=== PATIENT | male | born 1945 | race Caucasian/White ===

== ENCOUNTER → 2018-08-07 14:40 | Outpatient (CLI) | payer MEDICARE, OTHER, SELFPAY ==
--- NOTE | 2018-08-07 | DI.RAD.S_ITS ---
PROCEDURE: XR CALCANEOUS LT MIN 2V INDICATIONS: Plantar fascial fibromatosis TECHNIQUE: Two views of the calcaneus were acquired. COMPARISON: None. FINDINGS: Bones: No fractures or dislocations. No suspicious bony lesions. Prominent plantar calcaneal spur. Tibiotalar degenerative spurring at the posterior malleolus. Soft tissues: No suspicious calcifications. Small dystrophic calcifications projecting along the course of the Achilles tendon suggests chronic tendinopathy IMPRESSION: Prominent plantar calcaneal spur. Dictated by: Ariel Dinero M.D. on 08/07/2018 at 16:17 Approved by: Ariel Dinero M.D. on 08/07/2018 at 16:18
== END ==
PROVIDERS: Family Provider Family Medicine; PCP Family Medicine; Visit Provider Podiatrist
DX: M72.2 Plantar fascial fibromatosis (principal); M77.32 Calcaneal spur, left foot
CPT/HCPCS: 73650

== ENCOUNTER → 2019-04-06 10:23 | Outpatient (CLI) | payer MEDICARE, OTHER, SELFPAY ==
--- NOTE | 2019-04-06 | DI.US.S_ITS ---
PROCEDURE: US ABDOMEN COMPLETE INDICATIONS: DISORDER OF BILIRUBEN METABOLISM, UNSPECIFIED TECHNIQUE: Real-time scanning was performed of the abdominal and retroperitoneal organs, with image documentation. COMPARISON: [facility], CT, THORAX WITH CONTRAST, 06/23/2014, 9:01. [facility], US, ABDOMEN COMPLETE, 07/10/2009, 3:00. [facility], US, ABDOMEN COMPLETE, 05/08/2009, 8:32. FINDINGS: Liver: Liver is normal in size and homogeneous in echotexture, increased in echogenicity to a mild degree is consistent with fatty infiltration. Gallbladder: Surgically absent Biliary ducts: Poorly seen due to bowel gas. Pancreas: Visualized portions of the pancreas are sonographically normal. Spleen: Spleen is normal in size and homogeneous in echotexture. Kidneys: Kidneys are normal in size and echotexture. Right kidney measures 11.1 cm long; left kidney measures 11.2 cm long. No hydronephrosis or nephrolithiasis. No solid masses, but there is mild lobulation of the renal cortical borders consistent with that seen also on prior CT scanning compare 2014. Aorta: Visualized aorta is normal in caliber at less than 3 cm. Iliacs: Proximal common iliac arteries are normal in caliber at less than 2.5 cm. IVC: Intrahepatic inferior vena cava is patent. Miscellaneous: No free abdominal fluid. IMPRESSION: Mild lobulation of the renal cortical contours on the left, also seen on prior CT scanning from June 2014. No hydronephrosis or nephrolithiasis found Mild hepatic steatosis.. No liver mass or biliary distention is seen. Dictated by: Barron Bear M.D. on 04/06/2019 at 13:00 Approved by: Barron Bear M.D. on 04/06/2019 at 13:06
== END ==
PROVIDERS: PCP Family Medicine; Visit Provider Family Medicine
DX: E80.7 Disorder of bilirubin metabolism, unspecified (principal); Z90.49 Acquired absence of other specified parts of digestive tract; K76.0 Fatty (change of) liver, not elsewhere classified
CPT/HCPCS: 76700

== ENCOUNTER 2021-04-09 12:38 | Emergency (ER) | payer MEDICARE, OTHER, SELFPAY ==
[2021-04-09 12:40] VITALS: BP 169/90; PULSE 69; RESP 14; TEMP 36.2; O2SAT 99
--- NOTE | 2021-04-09 12:53 | ED.SKABFB ---
HPI - Skin/Abscess/Foreign Bdy General Chief complaint: Skin/Abscess/Foreign Body Stated complaint: gash on leg rt Time Seen by Provider: 04/09/21 12:48 Source: patient Mode of arrival: Ambulatory Limitations: no limitations History of Present Illness HPI narrative: 75-year-old male here for evaluation of a skin abrasion to his right cárdenas. Approximately 1 week ago he was wearing pants. He tripped while walking his dog and landed on a stump. Sustain an abrasion to his right cárdenas. Has been ambulatory since then. No fevers. Overall feels well appear started to get some redness around the area. His thought that he potentially had infection so he came to the emergency department for evaluation. Related Data Home Medications Medication Instructions Recorded Confirmed rosuvastatin 10 mg tablet (Crestor) 10 mg PO QPM #0 01/03/17 Previous Rx's Medication Instructions Recorded cephalexin 500 mg capsule 500 mg PO QID 7 Days #28 cap 04/09/21 Allergies Allergy/AdvReac Type Severity Reaction Status Date / Time No Known Drug Allergies Allergy Verified 04/09/21 12:49 Review of Systems Constitutional Constitutional: Denies fever(s) Musculoskeletal Musculoskeletal: Reports system reviewed and no additional complaints, except as documented and Reports as per HPI Integumentary/Breasts Skin/Breast: Reports system reviewed and no additional complaints, except as documented and Reports as per HPI Neurologic Neurologic: Reports system reviewed and no additional complaints, except as documented Hematologic/Lymphatic On Anticoagulants: No Patient History Social History Smoking Status: Never smoker Smoking Status: Never smoker alcohol intake frequency: 0-2 drinks per day Substance Use Type: does not use Exam Initial Vital Signs Initial Vital Signs: Vital Signs Temperature 97.1 F L 04/09/21 12:40 Pulse Rate 69 04/09/21 12:40 Respiratory Rate 14 04/09/21 12:40 Blood Pressure 169/90 H 04/09/21 12:40 Pulse Oximetry 99 04/09/21 12:40 HENMT Head: normal to inspection and normocephalic Skin Other: Patient has approximately 8 cm abrasion on his right anterior cárdenas. There is some scab formation. Very small amount of bleeding. There is some surrounding redness and warmth. No induration. Neuro Sensory Exam: no sensory deficits noted Extrem Other: Patient can flex and extend his ankle with only minimal discomfort on his anterior cárdenas Course Orders Ordered: Discontinued Medications Diphtheria/Tetanus/Acell Pertussis (Tet,Diph,Pertuss(Acell),Vac/Pf 0.5 Ml Syringe) 0.5 ml IM .ONCE ONE Stop: 04/09/21 12:51 Vital Signs Vital signs: Vital Signs - 8 hr 04/09/21 12:40 Temperature 97.1 F L Pulse Rate 69 Respiratory Rate 14 Blood Pressure 169/90 H Pulse Oximetry 99 MDM - Skin/Abscess/Foreign Bdy MDM Narrative Medical decision making narrative: I have low suspicion for fracture. We can hold on any radiologic studies. His injuries approximately 1 week ago. No indication for sutures here in the ER. There is some redness around the abrasion. He is squarely in a maria area where there potentially could be an infection that is causing the redness or this could very well just be a inflammation because of the injury and also healing of the area. His tetanus was updated. I will send home with a prescription for antibiotics although he is going to hold on this for the next 1-2 days. If his symptoms worsen he will start taking it as directed. If his symptoms start to improve he will discard the prescription. There is no indication for IV antibiotics. He expressed understanding and agreement this plan. Discharge Plan Departure Patient Disposition: Home Clinical Impression: Abrasion of skin Activity Restrictions/Additional Instructions: Your tetanus was updated today. The appearance of your wound today does have some findings that would be concerning for infection however this could also be inflammation related to the injury and also healing of the area. Like we discussed the plan will be is to send you home with a prescription for antibiotics. I recommend that you hold on filling this for the next 1-2 days. If your symptoms start to worsen. If becomes more painful. The redness starts to worsen in start taking the antibiotics as directed. If your symptoms continue to improve her do not worsen then just discard this antibiotic. Return to the emergency department for any new or worsening symptoms Prescriptions: New cephalexin 500 mg capsule 500 mg PO QID 7 Days Qty: 28 0RF No Action rosuvastatin [Crestor] 10 MG tablet 10 mg PO QPM Qty: 0 0RF Referrals: Elio Bran MD [Primary Care Provider] -
[2021-04-09] MEDS: TET,DIPH,PERTUSS(ACELL),VAC/PF 0.5 ML SYRINGE IM (13:10)
[2021-04-09 13:56] LABS: COVID19 -Nasal RAPID Negative (Negative)
== END 2021-04-09 14:14 | disposition home or self-care (01) ==
PROVIDERS: Emergency Provider Emergency Medicine; PCP Family Medicine
DX: S80.811A Abrasion, right lower leg, initial encounter (principal); W01.198A Fall on same level from slipping, tripping and stumbling with subsequent striking against other object, initial encounter; Y93.K1 Activity, walking an animal; Z20.822 Contact with and (suspected) exposure to COVID-19; Z23 Encounter for immunization
CPT/HCPCS: 87635; 90471; 99283; C9803; 90715

== ENCOUNTER → 2021-09-22 13:45 | Outpatient (CLI) | payer MEDICARE, OTHER, SELFPAY ==
--- NOTE | 2021-09-22 13:48 | DI.RAD.S_ITS ---
PROCEDURE: XR KNEE RT 3V INDICATIONS: fall, medial R knee pain TECHNIQUE: 3 views of the knee were acquired. COMPARISON: None. FINDINGS: Bones: Subtle lucency under the tibial eminence is most likely caused by nutrient vessel. No suspicious bony lesions. Mild degenerative joint disease. Soft tissues: Trace joint effusion. No suspicious soft tissue calcifications. IMPRESSION: Subtle lucency in the proximal tibia and the tibial eminence is most likely caused by a a nutrient vessel. If there is high clinical suspicion for fracture, CT would be helpful. Dictated by: Thelma Alberto M.D. on 09/22/2021 at 13:06 Approved by: Thelma Alberto M.D. on 09/22/2021 at 13:11
== END ==
PROVIDERS: PCP Family Medicine; Referring Provider Physician Assistant; Visit Provider Physician Assistant
DX: S89.91XA Unspecified injury of right lower leg, initial encounter (principal); X58.XXXA Exposure to other specified factors, initial encounter
CPT/HCPCS: 73562

== ENCOUNTER → 2021-10-22 17:06 | Outpatient (CLI) | payer MEDICARE, OTHER, SELFPAY ==
--- NOTE | 2021-10-22 | DI.MRI.S_ITS ---
PROCEDURE: MR KNEE RT WO CON INDICATIONS: SPRAIN OF MEDIAL COLLATERAL LIGMENT OF RIGHT TECHNIQUE: Noncontrast sagittal PD fast spin echo and T2 fast spin echo with fat saturation, sagittal 3-D FLASH with fat saturation; coronal T1 spin echo and PD fast spin echo with fat saturation, and axial PD fast spin echo with fat saturation through the knee. COMPARISON: None. FINDINGS: Image quality: Excellent. Menisci: Linear oblique high signal intensity traverses the middle 3rd of the posterior horn medial meniscus, demonstrating superior and inferior articular surface extension, indicating oblique tearing. Lateral meniscus is intact. Cruciate ligaments: The anterior and posterior cruciate ligaments appear intact. Medial structures: The medial collateral ligament appears intact, but demonstrates mild surrounding T2 signal elevation. Visualized portions of the pes anserinus tendons appear normal. No abnormal bursal fluid. Lateral structures: The lateral collateral ligament demonstrates mild T2 signal elevation at the femoral origin. The long and short heads of the biceps femoris tendon appear intact. The popliteus tendon appears normal. Iliotibial band appears normal. Anterior structures: The quadriceps and patellar tendons appear intact. Patellar alignment is normal. No femoral trochlear dysplasia or ventral trochlear prominence. No edema in the infrapatellar fat pad. Bones and cartilage: No displaced fracture. Mild ill-defined T2 signal elevation within the posterior weight-bearing aspect of the lateral tibial plateau, suggestive of contusion. Mild degenerative appearing ill-defined T2 signal elevation within the mid/anterior weight-bearing aspects of the medial femoral condyle and medial tibial plateau. Mild degenerative appearing signal within patellar apex and lateral patellar facet. Mild tricompartmental periarticular osteophyte formation. Severe articular cartilage loss diffusely overlies the weight-bearing aspects of the medial femoral condyle and medial tibial plateau. Mild articular cartilage loss diffusely overlies the weight-bearing aspects of the lateral femoral condyle and lateral tibial plateau. Moderate articular cartilage loss overlies the lateral patellar facet with superimposed high-grade articular cartilage loss overlying the central aspect of the lateral patellar facet. Joint space: There is physiologic knee joint fluid. No Astudillo's cyst. Normal appearing synovial plicae are incidentally noted. IMPRESSION: 1. Medial meniscal tear. 2. Contusion within the lateral tibial plateau. 3. Tricompartmental osteoarthritis with associated articular cartilage loss. 4. MCL strain. 5. Low-grade partial thickness lateral collateral ligament tear. Dictated by: Flora Wilhelm M.D. on 10/23/2021 at 9:13 Approved by: Flora Wilhelm M.D. on 10/23/2021 at 9:18
== END ==
PROVIDERS: PCP Family Medicine; Referring Provider Orthopaedic Surgery Foot and Ankle Surgery; Visit Provider Orthopaedic Surgery Foot and Ankle Surgery
DX: S83.411A Sprain of medial collateral ligament of right knee, initial encounter (principal); S83.241A Other tear of medial meniscus, current injury, right knee, initial encounter; S83.422A Sprain of lateral collateral ligament of left knee, initial encounter; S80.01XA Contusion of right knee, initial encounter; M17.11 Unilateral primary osteoarthritis, right knee
CPT/HCPCS: 73721

== ENCOUNTER 2022-01-03 23:07 | Emergency (ER) | payer MEDICARE, OTHER, SELFPAY ==
[2022-01-03 23:15] VITALS: BP 186/96; PULSE 68; RESP 18; TEMP 36.7; O2SAT 97
[2022-01-03] MEDS: TRANEXAMIC ACID 1,000 MG VIAL 500 MG TOP (23:22)
--- NOTE | 2022-01-03 23:45 | ED.EPISTAXIS ---
HPI - Epistaxis General Chief complaint: Nasal Problem Stated complaint: nose is bleeding thru packing post surgery Time Seen by Provider: 01/03/22 23:18 Source: patient Mode of arrival: Ambulatory Limitations: no limitations History of Present Illness HPI Narrative: This is a 76-year-old male who presents after having a melanoma excised on the left lateral nose and cheek earlier today. Patient states was not technically a Mohs surgery but dependent on margins he may have to return on Friday for additional surgery. This was done at [facility] with Dr. Tan. Patient states that they did cauterize an area and then put dressing in place. He states he was sitting at home at his desk when he started having bleeding spontaneously he was leaning slightly forward. Patient applied pressure but states it bled for about an hour until he arrived. He denies any other symptoms. States no blood thinners no aspirin, Plavix or other anticoagulants. He denies any other daily medications. Patient states that he is very minimal pain at this time. He states they did use lidocaine locally for surgery. Review of Systems Review of Systems ROS Unobtainable: All systems reviewed & are unremarkable except as noted in HPI and below Patient History Social History Smoking Status: Never smoker Smoking Status: Never smoker Substance Use Type: does not use Exam Narrative Exam Narrative: GEN: well nourished, well appearing male, alert and oriented x 3, patient appears to be in mild distress. HEENT: Atraumatic, pupils are equal round reactive to light, extraocular movements are intact, nares are clear, TMs are clear with no fluid, there is no conjunctival pallor. Throat is clear without any exudates, erythema, tonsillar enlargement or uvular deviation, patient has large tissue missing on the left lateral and cheek below the eye at the infraorbital margin. Area is L shaped and 1.75cm in width and 4.5cm in length and into the subcutaneous tissue. No active bleed on exam. There is a small amount of packing in place which was not disturbed. HEART: Regular rate and rhythm without murmur, clicks, rubs. LUNGS:Lungs clear to auscultation, no wheezes, rales, crackles, chest moves symmetrically ABD:bowel sounds normal, soft, non-tender, no guarding, rebound, rigidity, no masses noted, no hepatosplenomegaly MSCL: Non-tender, no muscle atrophy, muscles strength 5/5 upper and lower extremities, full range of motion, normal gait NEURO:CN 2-12 intact, sensation normal SKIN: No erythema or other skin changes noted. Initial Vital Signs Initial Vital Signs: Vital Signs Temperature 98.1 F 01/03/22 23:15 Pulse Rate 68 01/03/22 23:15 Respiratory Rate 18 01/03/22 23:15 Blood Pressure 186/96 H 01/03/22 23:15 Pulse Oximetry 97 01/03/22 23:15 Oxygen Delivery Method 01/03/22 23:15 Course Orders Ordered: Discontinued Medications Tranexamic Acid (Tranexamic Acid 1,000 Mg Vial) 500 mg TOP NOW ONE Stop: 01/03/22 23:19 Last Admin: 01/03/22 23:22 Dose: 500 mg Documented By: BERNADINE Vital Signs Vital signs: Vital Signs - 8 hr 01/03/22 23:15 01/04/22 00:31 Temperature 98.1 F Pulse Rate 68 59 L Respiratory Rate 18 18 Blood Pressure 186/96 H 158/86 H Pulse Oximetry 97 97 Oxygen Delivery Method Room Air Room Air MDM - Epistaxis MDM Narrative Medical decision making narrative: This is a 76-year-old male who comes to the emergency department with complaint of bleeding from his surgical excision melanoma. Patient's bleeding has actually stopped with him applying direct pressure for the past hour. Wound was evaluated, patient had a amount of ooze and a portion of Gelfoam was placed over the top of a small amount of packing and not directly onto the tissue. A small amount of TXA or tranexamic acid was applied to this area as well with good effect. Patient was observed for approximately 45 minutes with no additional bleeding, bandage was placed and patient was discharged home with return precautions. He is going to reach out to his dermatology office during daytime hours today/Friday. Discharge Plan Departure Patient Disposition: Home Clinical Impression: Post-op bleeding Activity Restrictions/Additional Instructions: Please follow-up with your electric blanket wirer tomorrow either by phone or in person. Let them know that you had some bleeding today. We did put a small amount of Gelfoam over the patches at your site but not directly on the tissue along with a small amount of TXA or tranexamic acid. Leave dressing in place. If you have recurrent bleeding please apply direct pressure. Please return if you have recurrent issues, bleeding that you are unable to stop with direct pressure after 10 minutes, any signs of infection, lightheadedness or passing out or any other new or concerning symptoms. Referrals: Elio Bran MD [Primary Care Provider] - Visit Report Forms: Patient Portal/API
[2022-01-04 00:31] VITALS: BP 158/86; PULSE 59; RESP 18; O2SAT 97
== END 2022-01-04 00:35 | disposition home or self-care (01) ==
PROVIDERS: Emergency Provider Emergency Medicine; PCP Family Medicine
DX: L76.21 Postprocedural hemorrhage of skin and subcutaneous tissue following a dermatologic procedure (principal)
CPT/HCPCS: 99282

== ENCOUNTER → 2023-04-16 15:05 | Outpatient (CLI) | payer MEDICARE, OTHER, SELFPAY ==
--- NOTE | 2023-04-16 | DI.RAD.S_ITS ---
PROCEDURE: XR SHOULDER RT MIN 2V INDICATIONS: RIGHT SHOULDER PAIN TECHNIQUE: 3 views of the shoulder were acquired. COMPARISON: None. FINDINGS: Bones: No fractures or dislocations. Moderate acromioclavicular joint and glenohumeral joint osteoarthritic changes are seen. No suspicious bony lesions. Visualized ribs appear intact. Soft tissues: No suspicious soft tissue calcifications. IMPRESSION: Moderate right shoulder joint osteoarthritis. No shoulder fracture or dislocation. No gross soft tissue abnormalities. Dictated by: Jeremie Sheridan M.D. on 04/16/2023 at 17:01 Approved by: Jeremie Sheridan M.D. on 04/16/2023 at 17:01
== END ==
PROVIDERS: PCP Family Medicine; Referring Provider Family Medicine; Visit Provider Family Medicine
DX: M25.511 Pain in right shoulder (principal); M19.011 Primary osteoarthritis, right shoulder
CPT/HCPCS: 73030

== ENCOUNTER → 2023-09-23 13:10 | Outpatient (CLI) | payer MEDICARE, OTHER, SELFPAY ==
--- NOTE | 2023-09-23 13:12 | DI.MRI.S_ITS ---
PROCEDURE: MR SHOULDER RT WO CON INDICATIONS: RIGHT SHOULDER PAIN TECHNIQUE: Noncontrast oblique coronal T2 fast spin echo with fat saturation, oblique sagittal T1 spin echo and T2 fast spin echo with fat saturation, axial T1 spin echo and T2 fast spin echo with fat saturation through the shoulder. COMPARISON: None. FINDINGS: Image quality: Excellent Rotator cuff: In the supraspinatus, there is focal, full-thickness tear at the critical zone, superimposed low grade articular sided tear (series 8, image 9). The infraspinatus is unremarkable. The teres minor is unremarkable. Mild tendinosis of the subscapularis, without tear. No muscle edema or fatty atrophy. Bones and bursae: Severe degenerative change of the acromioclavicular joint with inferior projecting osteophytes. Type 2 acromion. No os acromiale. No significant subacromial/subdeltoid bursitis. Mild subchondral cystic changes at the posterior aspect of the greater tuberosity, reactive. No focal chondral defects of the glenohumeral articulation. Capsule and soft tissues: Tear of the superior labrum, extending into the anterosuperior labrum. Tear of the posterior labrum as well. Diffuse labral degeneration. Mild tenosynovitis of the extra-articular biceps tendon. Severe tendinosis of the intra-articular biceps tendon. Small glenohumeral effusion. Mild subcoracoid bursitis. IMPRESSION: 1. Focal full-thickness tear of the supraspinatus, superimposed on low-grade articular sided tear. 2. Severe degenerative changes acromioclavicular joint. 3. Labral tear. 4. Mild tenosynovitis of the extra-articular biceps tendon. Severe tendinosis of the intra-articular biceps tendon. Dictated by: Carlyn Waterman M.D. on 09/23/2023 at 16:15 Approved by: Carlyn Waterman M.D. on 09/23/2023 at 16:26
== END ==
PROVIDERS: PCP Family Medicine; Referring Provider Orthopaedic Surgery; Visit Provider Orthopaedic Surgery
DX: M75.121 Complete rotator cuff tear or rupture of right shoulder, not specified as traumatic (principal); S43.401A Unspecified sprain of right shoulder joint, initial encounter; M65.9 Synovitis and tenosynovitis, unspecified
CPT/HCPCS: 73221

== ENCOUNTER 2024-02-09 10:53 | Emergency (ER) | payer MEDICARE, OTHER, SELFPAY ==
[2024-02-09] VITALS (8 sets, daily range): BP systolic 147–165; BP diastolic 68–94; PULSE 47–77; RESP 10–18; TEMP 36.2; O2SAT 95–98; BMI 29.5
--- NOTE | 2024-02-09 11:14 | EKG_ITS ---
[facility] [address] [place] [address] Test Date: 2024-02-09 Pat Name: Sae German Department: [facility] Room: Gender: Male [employer]: KEV : 1945 Requested By: Order Number: [id number] Reading MD: Angel Rogel MD Measurements Intervals [place] Rate: 59 P: 63 FL: 160 QRS: -3 QRSD: 82 T: -6 QT: 430 QTc: 425 Interpretive Statements Sinus bradycardia with premature atrial complexes Minimal voltage criteria for LVH, may be normal variant ( R in aVL ) Electronically Signed On 02-09-2024 13:49:45 PDT by Angel Rogel MD
--- NOTE | 2024-02-09 11:16 | ED_ITS ---
HPI - Syncope General Chief Complaint: Syncope Stated Complaint: syncope 02/06 Time Seen by Provider: 02/09/24 11:16 Source: patient Mode of arrival: Ambulatory Limitations: no limitations History of Present Illness HPI narrative: Patient is a 78-year-old male history of hyperlipidemia comes into the ED from home for evaluation of syncopal event, states that this happened on 02/07/2024 when he was attempting to fix a vanity Annam[place]. States that he does remember falling onto the floor, did not have any presyncopal or symptoms before or after. Denies any lightheaded dizziness. States he was able to stand bear weight ambulate immediately after. States that he was told by his to get ?checked out. Currently not complaining of any symptoms at this time. Related Data Home Medications Medication Instructions Recorded Confirmed rosuvastatin 10 mg tablet (Crestor) 10 mg PO QPM ##0 01/03/17 09/22/21 Allergies Allergy/AdvReac Type Severity Reaction Status Date / Time No Known Drug Allergies Allergy Verified 02/09/24 11:02 Review of Systems Review of Systems Narrative: HEENT: Denies headache, eye drainage, eye irritation, head trauma, sore throat, voice change Cardiovascular: Denies any chest pain, palpitations, shortness of breath, tachycardia Respiratory: Denies any shortness of breath, cough, wheeze, stridor GI/: Denies any abdominal pain, nausea, vomiting, diarrhea, bright red blood per rectum, melanotic stools, urinary frequency, urinary retention, dysuria, hematuria MSK: Denies any joint pain, muscle pains, swelling Skin: Denies any rashes, lesions, discoloration Neuro: Denies any headache, lightheadedness, dizziness, fainting, weakness. Positive syncope Psych: Denies SI/HI Patient History Social History (System 01/04/22 @ 06:58 by Lady Nori Lord) Smoking Status: Never smoker Smoking Status: Never smoker alcohol intake frequency: 0-2 drinks per day Substance Use Type: does not use Exam Narrative Exam Narrative: General: Cooperative, comfortable, well-developed, not in acute distress HEENT: Normocephalic, atraumatic, PERRLA, normal sclera, eyelids normal, Neck: Active full range of motion, atraumatic Chest: Normal to inspection, negative crepitus, no overlying erythema ecchymosis Respiratory: Normal respiratory effort, not in acute respiratory distress, clear to auscultation bilaterally negative cough, wheeze, tachypnea, rhonchi, rales Cardiology: Regular rate rhythm negative gallop, murmur, rubs GI/: Normal to inspection, soft, nonrigid, no tenderness to palpation, exam deferred MSK: Full range of active range of motion of all 4 extremities, atraumatic Skin: No rashes lesions noted Neuro: Alert awake oriented x3, moves all 4 extremities spontaneously, cranial nerves intact, able to answer all questions appropriately follows commands appropriately, NIH of 0 no focal deficits Psych: Cooperative, negative suicidal or homicidal ideations Initial Vital Signs Initial Vital Signs: Vital Signs Temperature 97.1 F L 02/09/24 10:55 Pulse Rate 77 02/09/24 10:55 Respiratory Rate 18 02/09/24 10:55 Blood Pressure 154/68 H 02/09/24 10:55 Pulse Oximetry 97 02/09/24 10:55 Oxygen Delivery Method Room Air 02/09/24 10:55 Course Orders Ordered: ED Orders 02/09/24 11:11 EKG-12 Lead Stat 02/09/24 11:24 CT angio head and neck Stat CT head/brain wo con Stat XR chest 1V Stat 02/09/24 11:34 Complete Blood Count AUTO DIFF Stat Comprehensive Metabolic Panel Stat Magnesium Stat Troponin I Stat 02/09/24 12:47 EKG-12 Lead Stat Sodium Chloride (Normal Saline 0.9%) 1,000 mls @ 150 mls/hr IV CONT MARCELINA Last Admin: 02/09/24 12:33 Dose: 150 mls/hr Documented By: VERONIQUE Vital Signs Vital signs: Vital Signs - 8 hr 02/09/24 10:55 Temperature 97.1 F L Pulse Rate 77 Respiratory Rate 18 Blood Pressure 154/68 H Pulse Oximetry 97 Oxygen Delivery Method Room Air MDM - Syncope Differential Diagnosis Differential diagnosis: Likely syncope due to orthostatic hypotension and other (ACS, pneumonia, electrolyte abnormality, subdural) Medical Records Attestation: I reviewed the patient's medical records. Lab Data Attestation: I reviewed the patient's lab results. 02/09/24 11:34 02/09/24 11:34 Labs: Lab Results 02/09/24 Range/Units 11:34 WBC 4.4 L (4.5-11.0) X10^3/uL RBC 4.47 L (4.5-5.9) X10^6/uL Hgb 13.8 (13.5-17.5) g/dL Hct 39.3 L (41-53) % MCV 88.0 (80-100) fL MCH 30.8 (26-34) PG MCHC 35.1 (30-36) % RDW 14.2 (11.6-14.8) % Plt Count 161 (150-400) X10^3/uL Neut % (Auto) 48.1 L (50-75) % Lymph % (Auto) 35.9 (25-40) % Hawkins % (Auto) 11.3 (3-14) % Eos % (Auto) 3.9 (2-4) % Baso % (Auto) 0.8 (0-2) % Neut # (Auto) 2100 (0227-7468) /uL Lymph # (Auto) 1600 (0554-2229) /uL Hawkins # (Auto) 500 (0-900) /uL Eos # (Auto) 200 (0-450) /uL Baso # (Auto) 0 (0-100) /uL Sodium 138 (137-145) mmol/L Potassium 4.3 (3.4-5.1) mmol/L Chloride 106 (98-107) mmol/L Carbon Dioxide 26 (22-32) mmol/L BUN 23 H (9-20) mg/dL Creatinine 1.53 H (0.66-1.25) mg/dL Estimated GFR 47 L (>60) mL/min BUN/Creatinine Ratio 15.0 (6-22) Glucose 106 (80-110) mg/dL Calcium 9.2 (8.4-10.2) mg/dL Magnesium 1.9 (1.6-2.3) mg/dL Total Bilirubin 2.1 H (0.2-1.3) mg/dL AST 29 (17-59) IU/L ALT 21 (<50) IU/L Alkaline Phosphatase 64 (38-126) U/L Troponin I < 0.012 (0.01-0.034) ng/mL Total Protein 6.7 (6.3-8.2) g/dL Albumin 4.0 (3.5-5.0) g/dL Globulin 2.7 (1.7-4.1) g/dL Albumin/Globulin Ratio 1.5 (1.0-2.8) Imaging Data CT scan - head: Radiologist's Impression: PROCEDURE: CT HEAD/BRAIN WO CON INDICATIONS: syncope, fall TECHNIQUE: Noncontrast 4.5 mm thick angled axial sections acquired from the foramen magnum to the vertex, with coronal and sagittal reformats. For radiation dose reduction, the following was used: automated exposure control, adjustment of mA and/or kV according to patient size. COMPARISON: None. FINDINGS: Image quality: Diagnostic. CSF spaces: Basal cisterns are patent. No extra-axial fluid collections. The ventricles are symmetric in size and shape. Brain: No intracranial bleeds or masses. There is cerebral volume loss for age, with resultant ventricular and sulcal prominence. There are periventricular and deep white matter chronic small vessel ischemic changes. There is intracranial internal carotid artery atherosclerosis. Skull and face: Left frontal scalp contusion/hematoma. Calvarium and visualized facial bones appear intact, without suspicious lesions. Sinuses: Visualized sinuses and mastoids are clear. IMPRESSION: 1. CT head without acute intracranial abnormalities or acute calvarial fractures. Left frontal scalp contusion/hematoma. 2. Age-related senescent changes and sequela of chronic small vessel ischemic disease. Chest x-ray: Radiologist's Impression: PROCEDURE: XR CHEST 1V INDICATIONS: syncope TECHNIQUE: One view of the chest was acquired. COMPARISON: [facility], CHEST 2 VIEW, 05/31/2014, 16:02. FINDINGS: Surgical changes and devices: None. Lungs and pleura: Lungs are clear. No pleural effusions or pneumothorax. Mediastinum: Mediastinal contours appear normal. Heart size is normal. Bones and chest wall: No suspicious bony lesions. Overlying soft tissues appear unremarkable. IMPRESSION: No acute cardiopulmonary abnormality is seen. CTA - brain/neck: Radiologist's Impression: PROCEDURE: CT ANGIO HEAD AND NECK INDICATIONS: syncope / fall TECHNIQUE: After the administration of intravenous contrast, 1 mm thick sections acquired from the aortic arch through the [place] of [place]. 3-dimensional kusgdsv-vvayvwrso-xahnnbdxjq (MIP) and/or volume rendering reformats were acquired of the central intracranial vasculature and neck separately. For radiation dose reduction, the following was used: automated exposure control, adjustment of mA and/or kV according to patient size. COMPARISON: [facility], CT, CT HEAD/BRAIN WO CON, 02/09/2024, 12:08. FINDINGS: Image quality: Diagnostic. BRAIN: CSF spaces: Ventricles are normal in size and shape. Basal cisterns are patent. No extra-axial fluid collections. Brain: No midline shift. No intracranial masses. No suspicious enhancement. Butt-white matter interface appears intact. Skull and face: Calvarium and facial bones appear intact, without suspicious lesions. Orbits appear normal. Sinuses: Mild bilateral maxillary sinus and right sphenoid sinus mucosal thickening. Remainder of the paranasal sinuses appear clear. Mastoid air cells are well- aerated. HEAD CT ANGIOGRAPHY: Anterior circulation: There are atherosclerotic calcifications of the intracranial segments of the internal carotid arteries. Intracranial internal carotid arteries appear patent without high-grade stenosis. There is flow/opacification within the paired anterior cerebral arteries. There is opacification within the middle cerebral arteries. The anterior communicating artery is seen. No aneurysms are seen. No occlusion. Posterior circulation: Visualized portions of the vertebral arteries are patent and join to form a normal appearing basilar artery. No evidence for high-grade stenosis. No occlusions. There is opacification of the posterior cerebral arteries. No aneurysms are seen. NECK CT ANGIOGRAPHY: Carotid system: The great vessels demonstrate a conventional anatomy as they arise from the aortic arch. Atherosclerotic calcifications of the aortic arch are present. The origins of the common carotid arteries appear patent. The common carotid arteries appear patent throughout their visualized courses without high grade stenosis. Mild atherosclerotic calcifications of the carotid bulbs bilaterally. The bifurcation regions are both patent without high grade stenosis. The internal carotid arteries demonstrate normal calibers and courses. Posterior circulation: The origins of the vertebral arteries both appear patent without hemodynamically significant stenosis. The more superior extracranial portions of both vertebral arteries also demonstrate normal courses and calibers. They join to form a normal appearing basilar artery. Soft tissues: Visualized neck soft tissues demonstrate no suspicious abnormalities. Left periorbital/frontal scalp soft tissue contusion and hematoma Bones: No suspicious bony lesions. Visualized cervical spine appears normally aligned. No acute compression fractures of the vertebral bodies. Multilevel cervical spondylosis. IMPRESSION: Negative CT angiogram of the intracranial and neck arterial vasculature for high-grade stenosis, large vessel occlusion, dissection, or aneurysm. Multilevel cervical spondylosis. Bilateral maxillary sinus and right sphenoid sinus disease. Left frontal scalp/periorbital soft tissue contusion/hematoma. No underlying calvarial fracture. Any quantitative measurements of stenosis were performed using NASCET criteria. ECG Data Attestation: I personally reviewed and interpreted this ECG as follows: Interpretation: EKG interpreted by ED physician sinus bradycardia at 59 beats per minute QTC 425, normal axis nonspecific ST changes occasional PAC noted, no STEMI MDM Narrative Medical decision making narrative: Patient is 78-year-old male history of hyperlipidemia comes into the ED from home for evaluation of syncopal event on 02/07/2024. States that he was fixing a vanity when he passed out, he states that he does remember hitting his head but denies any headache visual disturbances denies any presyncopal symptoms, currently not complaining of any symptoms. Patient with low [place] syncope, - 1. Lab work unremarkable trop negative EKG nonischemic, CT head CT a head and neck without any masses bleeds or stenoses. Patient at evaluation NIH of 0 no focal deficits. Patient will be discharged home with outpatient follow up with cardiology PCP. I did offer the patient admission or transfer for possible cardiac workup, however he states that he ?feels fine and states that he would rather go home and follow-up with cardiology and PCP in outpatient setting. Discharge Plan Departure Patient Disposition: Home Clinical Impression: Syncope Activity Restrictions/Additional Instructions: Follow-up with cardiology and PCP Please read the discharge instructions sheet carefully and bring all papers to all doctor follow-up visits, as it may contain information that your doctor may want to see. Disease processes change and evolve, if your symptoms worsen or if you develop any new symptoms that are concerning to you please return for evaluation. Your evaluation today does not show any evidence of any life- threatening/serious illnesses requiring admission to the hospital or surgery. Please follow-up with your doctor for re-evaluation in approximately 1 day. Seek immediate medical attention for any worrisome symptoms. Prescriptions: No Action rosuvastatin [Crestor] 10 MG tablet 10 mg PO QPM Qty: 0 Referrals: Alex Sheridan MD [Physician] - (Syncope) Elio Bran MD [Primary Care Provider] - Stand Alone Forms: Patient Portal/API
--- NOTE | 2024-02-09 11:24 | DI.CT.S_ITS ---
PROCEDURE: CT ANGIO HEAD AND NECK INDICATIONS: syncope / fall TECHNIQUE: After the administration of intravenous contrast, 1 mm thick sections acquired from the aortic arch through the [place] of Wong. 3-dimensional ahdihil-ywbyaslfp-yzddpxywxm (MIP) and/or volume rendering reformats were acquired of the central intracranial vasculature and neck separately. For radiation dose reduction, the following was used: automated exposure control, adjustment of mA and/or kV according to patient size. COMPARISON: [facility], CT, CT HEAD/BRAIN WO CON, 02/09/2024, 12:08. FINDINGS: Image quality: Diagnostic. BRAIN: CSF spaces: Ventricles are normal in size and shape. Basal cisterns are patent. No extra-axial fluid collections. Brain: No midline shift. No intracranial masses. No suspicious enhancement. Butt-white matter interface appears intact. Skull and face: Calvarium and facial bones appear intact, without suspicious lesions. Orbits appear normal. Sinuses: Mild bilateral maxillary sinus and right sphenoid sinus mucosal thickening. Remainder of the paranasal sinuses appear clear. Mastoid air cells are well-aerated. HEAD CT ANGIOGRAPHY: Anterior circulation: There are atherosclerotic calcifications of the intracranial segments of the internal carotid arteries. Intracranial internal carotid arteries appear patent without high-grade stenosis. There is flow/opacification within the paired anterior cerebral arteries. There is opacification within the middle cerebral arteries. The anterior communicating artery is seen. No aneurysms are seen. No occlusion. Posterior circulation: Visualized portions of the vertebral arteries are patent and join to form a normal appearing basilar artery. No evidence for high-grade stenosis. No occlusions. There is opacification of the posterior cerebral arteries. No aneurysms are seen. NECK CT ANGIOGRAPHY: Carotid system: The great vessels demonstrate a conventional anatomy as they arise from the aortic arch. Atherosclerotic calcifications of the aortic arch are present. The origins of the common carotid arteries appear patent. The common carotid arteries appear patent throughout their visualized courses without high grade stenosis. Mild atherosclerotic calcifications of the carotid bulbs bilaterally. The bifurcation regions are both patent without high grade stenosis. The internal carotid arteries demonstrate normal calibers and courses. Posterior circulation: The origins of the vertebral arteries both appear patent without hemodynamically significant stenosis. The more superior extracranial portions of both vertebral arteries also demonstrate normal courses and calibers. They join to form a normal appearing basilar artery. Soft tissues: Visualized neck soft tissues demonstrate no suspicious abnormalities. Left periorbital/frontal scalp soft tissue contusion and hematoma Bones: No suspicious bony lesions. Visualized cervical spine appears normally aligned. No acute compression fractures of the vertebral bodies. Multilevel cervical spondylosis. IMPRESSION: Negative CT angiogram of the intracranial and neck arterial vasculature for high-grade stenosis, large vessel occlusion, dissection, or aneurysm. Multilevel cervical spondylosis. Bilateral maxillary sinus and right sphenoid sinus disease. Left frontal scalp/periorbital soft tissue contusion/hematoma. No underlying calvarial fracture. Any quantitative measurements of stenosis were performed using NASCET criteria. Dictated by: Michael Cunningham M.D. on 02/09/2024 at 12:28 Approved by: Michael Cunningham M.D. on 02/09/2024 at 12:36
--- NOTE | 2024-02-09 11:24 | DI.CT.S_ITS ---
PROCEDURE: CT HEAD/BRAIN WO CON INDICATIONS: syncope, fall TECHNIQUE: Noncontrast 4.5 mm thick angled axial sections acquired from the foramen magnum to the vertex, with coronal and sagittal reformats. For radiation dose reduction, the following was used: automated exposure control, adjustment of mA and/or kV according to patient size. COMPARISON: None. FINDINGS: Image quality: Diagnostic. CSF spaces: Basal cisterns are patent. No extra-axial fluid collections. The ventricles are symmetric in size and shape. Brain: No intracranial bleeds or masses. There is cerebral volume loss for age, with resultant ventricular and sulcal prominence. There are periventricular and deep white matter chronic small vessel ischemic changes. There is intracranial internal carotid artery atherosclerosis. Skull and face: Left frontal scalp contusion/hematoma. Calvarium and visualized facial bones appear intact, without suspicious lesions. Sinuses: Visualized sinuses and mastoids are clear. IMPRESSION: 1. CT head without acute intracranial abnormalities or acute calvarial fractures. Left frontal scalp contusion/hematoma. 2. Age-related senescent changes and sequela of chronic small vessel ischemic disease. Dictated by: Michael Cunningham M.D. on 02/09/2024 at 12:27 Approved by: Michael Cunningham M.D. on 02/09/2024 at 12:28
--- NOTE | 2024-02-09 11:24 | DI.RAD.S_ITS ---
PROCEDURE: XR CHEST 1V INDICATIONS: syncope TECHNIQUE: One view of the chest was acquired. COMPARISON: [facility], , CHEST 2 VIEW, 05/31/2014, 16:02. FINDINGS: Surgical changes and devices: None. Lungs and pleura: Lungs are clear. No pleural effusions or pneumothorax. Mediastinum: Mediastinal contours appear normal. Heart size is normal. Bones and chest wall: No suspicious bony lesions. Overlying soft tissues appear unremarkable. IMPRESSION: No acute cardiopulmonary abnormality is seen. Dictated by: Len Anthony M.D. on 02/09/2024 at 12:18 Approved by: Len Anthony M.D. on 02/09/2024 at 12:18
[2024-02-09 11:41] LABS: Add Manual Diff / Slide Review NO; Basophils Absolute Auto 0 /uL (0-100); Basophils Percent Auto 0.8 % (0-2); Eosinophils Absolute Auto 200 /uL (0-450); Eosinophils Percent Auto 3.9 % (2-4); Hematocrit 39.3 % (41-53); Hemoglobin 13.8 g/dL (13.5-17.5); Lymphocytes Absolute Auto 1600 /uL (1100-4500); Lymphocytes Percent Auto 35.9 % (25-40); Mean Corpuscular HGB Conc 35.1 % (30-36); Mean Corpuscular Hemoglobin 30.8 PG (26-34); Monocytes Absolute Auto 500 /uL (0-900); Monocytes Percent Auto 11.3 % (3-14); Neutrophils Absolute Auto 2100 /uL (1500-7000); Neutrophils Percent Auto 48.1 % (50-75); Platelet Count 161 X10^3/uL (150-400); Red Blood Cell Count 4.47 X10^6/uL (4.5-5.9); Red Cell Distribution Width 14.2 % (11.6-14.8); White Blood Cell Count 4.4 X10^3/uL (4.5-11.0)
[2024-02-09 11:52] LABS: Alanine Aminotransferase 21 IU/L (<50); Albumin Globulin Ratio 1.5 (1.0-2.8); Alkaline Phosphatase 64 U/L (38-126); Aspartate Aminotransferase 29 IU/L (17-59); Bilirubin Total 2.1 mg/dL (0.2-1.3); Blood Urea Nitrogen 23 mg/dL (9-20); Calcium 9.2 mg/dL (8.4-10.2); Carbon Dioxide 26 mmol/L (22-32); Chloride 106 mmol/L (98-107); Estimated Glomerular Filt Rate 47 mL/min (>60); Globulin 2.7 g/dL (1.7-4.1); Glucose 106 mg/dL (80-110); HEMOLYSIS < 15 (0-50); Magnesium 1.9 mg/dL (1.6-2.3); Potassium 4.3 mmol/L (3.4-5.1); Sodium 138 mmol/L (137-145); Total Protein 6.7 g/dL (6.3-8.2)
[2024-02-09 12:04] LABS: Troponin I < 0.012 ng/mL (0.01-0.034)
[2024-02-09] MEDS: SODIUM CHLORIDE 0.9% 1,000 ML 150 ML IV (12:33)
--- NOTE | 2024-02-09 12:52 | EKG_ITS ---
[facility] [address] [place] [address] Test Date: 2024-02-09 Pat Name: Sae German Department: [facility] Room: Gender: Male Deportation Examiner: DIANE REYNA : 1945 Requested By: Order Number: [id number] Reading MD: Angel Rogel MD Measurements Intervals Wanda Rate: 57 P: 95 NC: 184 QRS: -5 QRSD: 76 T: -8 QT: 438 QTc: 426 Interpretive Statements Sinus bradycardia with premature supraventricular complexes and with occasional premature ventricular complexes Minimal voltage criteria for LVH, may be normal variant ( R in aVL ) Electronically Signed On 02-09-2024 13:49:58 PDT by Angel Rogel MD
== END 2024-02-09 13:39 | disposition home or self-care (01) ==
PROVIDERS: Emergency Provider Student in an Organized Health Care Education/Training Program; PCP Family Medicine
DX: R55 Syncope and collapse (principal); R00.1 Bradycardia, unspecified
CPT/HCPCS: 70450; 70496; 70498; 71045; 80053; 83735; 84484; 85025; 93005; 93010; 96360; 99284; Q9967

== ENCOUNTER → 2024-02-19 19:27 | Outpatient (CLI) | payer MEDICARE, OTHER, SELFPAY ==
--- NOTE | 2024-02-19 | DI.MRI.S_ITS ---
PROCEDURE: MR SHOULDER RT WO CON INDICATIONS: rotator cuff injury rt TECHNIQUE: Noncontrast oblique coronal T2 fast spin echo with fat saturation, oblique sagittal T1 spin echo and T2 fast spin echo with fat saturation, axial T1 spin echo and T2 fast spin echo with fat saturation through the shoulder. COMPARISON: [facility], MR, MR SHOULDER RT WO CON, 09/23/2023, 13:21. FINDINGS: Compared to the prior exam there is new marked abnormal appearance of the right distal clavicle with suspected mildly displaced fracture fragment, severe diffuse bone edema in the clavicle and acromion, moderate to severe diffuse surrounding edema and new moderate acromioclavicular joint fluid. The findings are most likely posttraumatic however superimposed acromioclavicular joint septic arthritis could be considered although less likely. If indicated joint aspiration, gram stain and culture could be performed. There is evidence of a rotator cuff repair which has occurred in the interval since the prior exam however there is a new near full-thickness tear of the supraspinatus at the myotendinous junction and into the mid and distal aspect of the articular side of the supraspinatus tendon with edema and thickening at its distal attachment. No myotendinous retraction or muscular fatty atrophy. Partial tear and tendinopathy with thickening and edema in the distal subscapularis tendon is new or worsened. Infraspinatus and teres minor muscles and tendons without significant abnormality unchanged. Postoperative changes of the distal biceps tendon and biceps anchor with mild increased T2 weighted signal some of which may be related to new mild tendinopathy without tear or retraction. Previously noted large anterior paralabral cyst is markedly decreased previously up to 4 cm transverse now 1.5 cm maximally. Marked degenerative changes of the labrum with irregularity, increased signal related to remote SLAP tear, and diffuse degenerative changes of the glenohumeral joint with near [id number]-[id number] configuration, diffuse cartilaginous thinning. Image quality: Excellent. Patient motion artifacts, vascular pulsation artifacts and metallic susceptibility artifacts are noted. IMPRESSION: New marked abnormal appearance of the right distal clavicle with suspected mildly displaced fracture fragment, severe diffuse bone edema in the clavicle and acromion, moderate to severe diffuse surrounding edema and new moderate acromioclavicular joint fluid. The findings are most likely posttraumatic however superimposed acromioclavicular joint septic arthritis could be considered although less likely. If indicated joint aspiration, gram stain and culture could be performed. Follow-up is needed. Rotator cuff repair which has occurred in the interval. New near full-thickness tear of the supraspinatus as discussed above. Partial tear and tendinopathy subscapularis tendon is new or worsened. Postoperative changes of the distal biceps tendon and biceps anchor with mild tendinopathy. Previously noted paralabral cyst is markedly decreased. Marked degenerative changes of the labrum similar to the prior exam. Dictated by: Mik Ludwig M.D. on 02/20/2024 at 10:31 Approved by: Mik Ludwig M.D. on 02/20/2024 at 12:08
== END ==
PROVIDERS: PCP Family Medicine; Referring Provider Orthopaedic Surgery; Visit Provider Orthopaedic Surgery
DX: S46.011A Strain of muscle(s) and tendon(s) of the rotator cuff of right shoulder, initial encounter (principal); S43.431A Superior glenoid labrum lesion of right shoulder, initial encounter; M25.411 Effusion, right shoulder; X58.XXXA Exposure to other specified factors, initial encounter
CPT/HCPCS: 73221

== ENCOUNTER → 2024-03-19 13:46 | Outpatient (CLI) | payer MEDICARE, OTHER, SELFPAY ==
--- NOTE | 2024-03-19 13:49 | DI.CT.S_ITS ---
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 For radiation dose reduction, the following was used: automated exposure control, adjustment of mA and/or kV according to patient size. COMPARISON: [facility], CT, CT HEAD/BRAIN WO CON, 02/09/2024, 12:08. [facility], CT, CT ANGIO HEAD AND NECK, 02/09/2024, 12:08. [facility], CT, CT SOFT TISSUE NECK W CON, 03/19/2024, 14:53. [facility], CT, CT CHEST W CON, 03/19/2024, 14:53. FINDINGS: Image quality: Excellent. CSF Spaces: Basal cisterns are patent. No extra-axial fluid collections. Ventricles are normal in size and shape. Brain: No midline shift. No intracranial bleeds or masses. No abnormal intracranial enhancement. Butt-white interface appears normal. Skull and face: Postoperative changes of the left anterior scalp can be seen, with lesion removal. Overlying bandaging material is seen. No associated bony abnormality is seen.. Calvarium and visualized facial bones appear intact, without suspicious lesions. Sinuses: Visualized sinuses and mastoids are clear. IMPRESSION: Interval scalp lesion removal. No intracranial masses or mass effect can be seen. No abnormal enhancement is seen. If it would be helpful for clinical management decision making, please consider a dedicated, scheduled brain MRI (without and with contrast) for further evaluation (assuming that there is no contraindication). Dictated by: Misael Cadena M.D. on 03/19/2024 at 14:38 Approved by: Misael Cadena M.D. on 03/19/2024 at 14:40
--- NOTE | 2024-03-19 13:49 | DI.CT.S_ITS ---
PROCEDURE: CT CHEST W CON INDICATIONS: Evaluate for PLEOMORPHIC SARCOMA TECHNIQUE: After the administration of intravenous contrast, 5 mm thick sections acquired from the pulmonary apices to the posterior costophrenic angles. 1 mm axial lung, 5 mm thick coronal and sagittal reformats and 7 mm axial MIP were acquired. For radiation dose reduction, the following was used: automated exposure control, adjustment of mA and/or kV according to patient size. COMPARISON: [facility], CT, CT SOFT TISSUE NECK W CON, 03/19/2024, 14:53. [facility], CT, CT HEAD/BRAIN W CON, 03/19/2024, 14:53. FINDINGS: Image quality: Diagnostic. Lower Neck: No enlarged lymph nodes. Thyroid: No thyroid nodules which require sonographic follow up, per consensus guidelines. Axillae: No enlarged lymph nodes. Chest Wall: Unremarkable. Bones: Age-appropriate bony degenerative changes are seen. Lungs and Pleura: Within the posterior aspect of the right lower lobe, there is an apparent calcified granuloma seen, as on series 3, image 218, measuring 250 Hounsfield units. No suspicious soft tissue nodules are seen. No pneumothorax or pleural effusions are seen. Heart: Heart size is normal. No pericardial effusion. Thoracic Vessels: The aorta and pulmonary arteries demonstrate normal size. Mediastinum and Millicent: No enlarged lymph nodes. Esophagus: No wall thickening. No hiatal hernia. Upper Abdomen: Postoperative clips are seen anterior to the liver. Within the left liver, there is a water density cyst, without enhancement measuring 1.5 cm. The visualized portions of the upper abdominal structures are otherwise unremarkable for imaging technique. IMPRESSION: No suspicious pulmonary nodules are seen. No enlarged lymph nodes are seen. Additional findings: Prior granulomatous exposure. Simple liver cyst Postoperative clips anterior to the liver Dictated by: Misael Cadena M.D. on 03/19/2024 at 14:43 Approved by: Misael Cadena M.D. on 03/19/2024 at 14:46
--- NOTE | 2024-03-19 13:49 | DI.CT.S_ITS ---
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 Additional oblique axial 3.0 mm sections acquired through the pharynx. 3 mm thick coronal and sagittal reformats were generated. For radiation dose reduction, the following was used: automated exposure control. COMPARISON: [facility], CT, CT HEAD/BRAIN W CON, 03/19/2024, 14:53. [facility], CT, CT CHEST W CON, 03/19/2024, 14:53. [facility], CT, CT ANGIO HEAD AND NECK, 02/09/2024, 12:08. FINDINGS: Image quality: There is artifact associated with the metallic hardware. Artifact from the metallic hardware is reduced by metal reconstruction algorithm. Lymph nodes: No enlarged lymph nodes seen throughout the neck. Vessels: Visualized vasculature appears patent. Incidental note is made of a direct origin of the left vertebral artery from the aortic arch, which is regarded to be an incidental anatomic variant. The Neck spaces: The oropharynx, nasopharynx, and pharynx demonstrate no mucosal lesions. The vocal cords, false vocal cords, pyriform sinuses, epiglottis, vallecula, and tongue base all appear normal. Extramucosal spaces appear unremarkable. Glands: The parotid and submandibular glands appear normal. Thyroid gland demonstrates no significant abnormality. Miscellaneous: Visualized brain and orbits appear normal. Lung apices appear clear. Superficial soft tissues appear normal. Bones: No suspicious bony lesions. Visualized sinuses and mastoids appear unremarkable. Moderate cervical spine degenerative changes are seen. IMPRESSION: No enlarged cervical lymph nodes are seen. No neck masses are seen. No focal bony abnormalities are seen. Additional findings: Moderate cervical spine degenerative change Dictated by: Misael Cadena M.D. on 03/19/2024 at 14:41 Approved by: Misael Cadena M.D. on 03/19/2024 at 14:43
[2024-03-19 14:14] LABS: Estimated Glomerular Filt Rate 49 mL/min (>60)
== END ==
PROVIDERS: Radiology Diagnostic Radiology; PCP Family Medicine; Referring Provider Dermatology; Visit Provider Dermatology
DX: C44.399 Other specified malignant neoplasm of skin of other parts of face (principal)
CPT/HCPCS: 36415; 70460; 70491; 71260; 82565; Q9967

== ENCOUNTER → 2024-07-06 09:54 | Outpatient (CLI) | payer MEDICARE, OTHER, SELFPAY ==
--- NOTE | 2024-07-06 09:56 | DI.CT.S_ITS ---
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 For radiation dose reduction, the following was used: automated exposure control, adjustment of mA and/or kV according to patient size. COMPARISON: [facility], CT, CT ANGIO HEAD AND NECK, 02/09/2024, 12:08. [facility], CT, CT HEAD/BRAIN WO CON, 02/09/2024, 12:08. [facility], CT, CT SOFT TISSUE NECK W CON, 03/19/2024, 14:53. [facility], CT, CT HEAD/BRAIN W CON, 03/19/2024, 14:53. FINDINGS: Image quality: Excellent. Bones and teeth: Orbital trivedi are intact. Sinus trivedi show no fracture or deformity. Nasal bones and septum are intact. There is chronic mild leftward nasal septal deviation. Visualized portions of the mandible demonstrate no fractures or subluxation. Zygomatic arches are intact. Pterygoid plates are intact. Visualized portions of the skull base and auditory canals are intact. Sinuses: Mild mucosal thickening can be seen within the maxillary sinuses. The frontal sinuses demonstrate mild mucosal thickening inferior medially. The ostiomeatal complexes are patent, yet they are constitutionally narrowed, with bilateral Massiel cells. Soft tissues: Left forehead soft tissue irregularity is seen, with scalp thickening, as on series 3, image 78. Vascular: Visualized vascular structures appear normal in the absence of contrast. Bony vascular foramina and canals are intact. IMPRESSION: Study performed for surgical planning. Left-sided scalp thickening seen, without a definable mass. No underlying bony abnormality is identified. Underlying mild paranasal sinus disease noted. Dictated by: Misael Cadena M.D. on 07/06/2024 at 13:00 Approved by: Misael Cadena M.D. on 07/06/2024 at 13:03
== END ==
PROVIDERS: PCP Family Medicine; Referring Provider Plastic Surgery; Visit Provider Plastic Surgery
DX: C49.0 Malignant neoplasm of connective and soft tissue of head, face and neck (principal); J32.8 Other chronic sinusitis
CPT/HCPCS: 70486